=== PATIENT | female | born 1980 | race African-American/Black ===

== ENCOUNTER 2023-10-09 16:00 | Emergency (ER) | payer MEDICAID ==
[~2023-10-09] VITALS: Ht 170.2 cm; Wt 136.4 kg
[2023-10-09 16:56] LABS: COVID AG,FIA SOURCE NASAL SWAB
[2023-10-09 17:03] LABS: SARS-COV2 (COVID) ANTIGEN,FIA Negative (Negative)
[2023-10-09 17:04] LABS: INFLUENZA TYPE A NEGATIVE FOR TYPE A (NEGATIVE); INFLUENZA TYPE B NEGATIVE FOR TYPE B (NEGATIVE)
[2023-10-09 17:51] VITALS: BP 111/75; PULSE 88; RESP 16; TEMP 98.2
[2023-10-09] MEDS ORDERED: GUAIFDM PO (17:52)
[2023-10-09] MEDS ORDERED: IBUP-1554 PO (17:52)
[2023-10-09] MEDS ORDERED: ACET-66 PO (17:52)
== END 2023-10-09 19:00 | disposition home or self-care (01) ==
LOC: EMS 16:02
DX: J06.9 Acute upper respiratory infection, unspecified (principal); Z90.49 Acquired absence of other specified parts of digestive tract; Z20.822 Contact with and (suspected) exposure to COVID-19
CPT/HCPCS: 87804; 99283

== ENCOUNTER 2023-10-25 14:16 | Emergency (ER) | payer MEDICAID ==
[~2023-10-25] VITALS: Ht 170.2 cm; Wt 102.3 kg
[~2023-10-25 14:16] MED LIST: ACET-66 PO; GUAIFDM PO; IBUP-1554 PO
[2023-10-25 14:35] VITALS: TEMP 98.9
[2023-10-25 14:52] LABS: COVID AG,FIA SOURCE NASAL SWAB
[2023-10-25 15:01] LABS: INFLUENZA TYPE A NEGATIVE FOR TYPE A (NEGATIVE); INFLUENZA TYPE B NEGATIVE FOR TYPE B (NEGATIVE); SARS-COV2 (COVID) ANTIGEN,FIA Negative (Negative)
[2023-10-25 15:02] LABS: RAPID GROUP A STREP NEGATIVE (NEGATIVE)
[2023-10-25] MEDS ORDERED: AZIT250T9 PO (16:08)
[2023-10-25 16:29] VITALS: BP 140/79; PULSE 109; RESP 16
== END 2023-10-25 16:46 | disposition home or self-care (01) ==
LOC: EMS 14:33
DX: H66.91 Otitis media, unspecified, right ear (principal); J02.9 Acute pharyngitis, unspecified; Z90.49 Acquired absence of other specified parts of digestive tract; Z88.0 Allergy status to penicillin; Z20.822 Contact with and (suspected) exposure to COVID-19
CPT/HCPCS: 87430; 87804; 99283

== ENCOUNTER 2023-12-28 12:08 | Emergency (ER) | payer MEDICAID ==
[~2023-12-28] VITALS: Ht 170.2 cm; Wt 102.3 kg
[2023-12-28 14:03] LABS: ANION GAP 13 mmol/L (8-16); CARBON DIOXIDE 24 mmol/L (22-29); CHLORIDE 101 mmol/L (98-107); GLOMERULAR FILTR. RATE CALC > 60 mL/min (>60); GLUCOSE,RANDOM 94 mg/dL (70-110); POTASSIUM 3.2 mmol/L (3.5-5.1); SODIUM SERUM 138 mmol/L (136-145); UREA NITROGEN, BLOOD 9 mg/dL (7-18)
[2023-12-28 14:04] LABS: BASOPHILS % (AUTO) 0.9 % (0.0-2.0); EOSINOPHILS % (AUTO) 0.1 % (1.0-6.0); HEMATOCRIT 40.2 % (36-46); MEAN CORPUSCULAR HEMOGLOBIN 27.2 pg (26.0-34.0); MEAN CORPUSCULAR HGB CONC 32.3 G/dL (31.0-37.0); MEAN CORPUSCULAR VOLUME 84 fL (80-100); MONOCYTES # (AUTO) 0.5 K/uL (0.1-1.0); MONOCYTES % (AUTO) 8.7 % (2.0-9.0); NEUTROPHILS % (AUTO) 72.3 % (40.0-70.0); PLATELET COUNT (AUTO) 254 K/uL (150-450); RED BLOOD CELL COUNT(AUTO) 4.78 MIL/uL (4.00-5.20); RED CELL DISTRIBUTION WIDTH 14.6 % (11.5-14.5); WHITE BLOOD COUNT (AUTO) 5.5 K/uL (4.5-11.0)
[2023-12-28 14:10] LABS: ALANINE AMINOTRANSFERASE 13 U/L (12-78); ALBUMIN 3.9 g/dL (3.4-5.0); ALKALINE PHOSPHATASE 53 U/L (46-116); ASPARTATE AMINOTRANSFERASE 16 U/L (15-37); BILIRUBIN,TOTAL 0.9 mg/dL (0.1-1.0); LIPASE 47 U/L (16-77); TOTAL PROTEIN, SERUM 7.7 g/dL (6.4-8.2)
[2023-12-28 14:11] LABS: TROPONIN I-HIGH SENSITIVITY 11 ng/L (<51)
[2023-12-28 14:12] LABS: LACTIC ACID 1.2 mmol/L (0.4-2.0)
[2023-12-28 14:49] LABS: APPEARANCE,URINE CLEAR (CLEAR); BILIRUBIN,URINE NEGATIVE (NEGATIVE); COLOR,URINE YELLOW (YELLOW); GLUCOSE, URINE (UA) TRACE mg/dL (NEGATIVE); KETONES,URINE 40-60 mg/dL (NEGATIVE); LEUKOCYTE ESTERASE ,URINE NEGATIVE (NEGATIVE); NITRATE,URINE NEGATIVE (NEGATIVE); OCCULT BLOOD,URINE SMALL (NEGATIVE); PH,URINE 5.5 (5.0-8.0); PROTEIN,URINE 30-70 mg/dL (NEGATIVE); SPECIFIC GRAVITIY, URINE 1.028 (1.003-1.030); UROBILINOGEN,URINE <=1.0 mg/dL (<=1.0)
[2023-12-28] MEDS: POTASSIUM CHLORIDE 20 MEQ ER TABLET PO ONE (14:57)
[2023-12-28 15:13] LABS: BACTERIA,URINE Few /HPF (None Seen); WBC,URINE 0-2 /HPF (0-5)
[2023-12-28 15:14] LABS: SQUAMOUS EPITHELIAL CELL,UR Moderate /LPF (None Seen)
[2023-12-28 18:33] VITALS: TEMP 98.6
[2023-12-28 18:35] VITALS: BP 139/88; PULSE 91; RESP 18
== END 2023-12-28 18:53 | disposition home or self-care (01) ==
LOC: EMS 13:12
DX: R10.9 Unspecified abdominal pain (principal); Z90.49 Acquired absence of other specified parts of digestive tract
CPT/HCPCS: 76700; 80053; 81001; 83605; 83690; 84484; 84703; 85025; 93005; 99284

== ENCOUNTER 2025-04-11 16:40 | Emergency (ER) | payer MEDICAID, OTHER ==
[~2025-04-11] VITALS: Ht 167.6 cm; Wt 88.6 kg
[2025-04-11] MEDS ORDERED: METO25XL PO (16:48)
[2025-04-11 16:52] VITALS: TEMP 99
[2025-04-11 18:00] LABS: PLATELET COUNT (AUTO) 256 K/uL (150-450); RED BLOOD CELL COUNT(AUTO) 4.98 MIL/uL (4.00-5.20); RED CELL DISTRIBUTION WIDTH 14.8 % (11.5-14.5); WHITE BLOOD COUNT (AUTO) 6.5 K/uL (4.5-11.0)
[2025-04-11 18:10] LABS: CALCIUM, TOTAL 9.0 mg/dL (8.8-10.5); CREATININE 1.29 mg/dL (0.60-1.30); GLOMERULAR FILTR. RATE CALC 55 mL/min (>60); GLUCOSE,RANDOM 91 mg/dL (70-110); SODIUM SERUM 137 mmol/L (136-145); UREA NITROGEN, BLOOD 7 mg/dL (7-18)
[2025-04-11 18:12] LABS: ALCOHOL, BLOOD (SERUM) < 3 mg/dL (0-10)
[2025-04-11 18:14] LABS: TROPONIN I-HIGH SENSITIVITY 7 ng/L (<51)
[2025-04-11 18:19] LABS: LACTIC ACID 1.9 mmol/L (0.4-2.0)
[2025-04-11 19:01] LABS: APPEARANCE,URINE HAZY (CLEAR); GLUCOSE, URINE (UA) NEGATIVE (NEGATIVE); LEUKOCYTE ESTERASE ,URINE NEGATIVE (NEGATIVE); NITRATE,URINE NEGATIVE (NEGATIVE); OCCULT BLOOD,URINE SMALL (NEGATIVE); PH,URINE DRUG SCREEN 5.5 (5.0-8.0); SPECIFIC GRAVITIY, URINE 1.031 (1.003-1.030)
[2025-04-11 19:05] LABS: ALCOHOL, URINE DRUG SCREEN NEGATIVE (NEGATIVE); AMPHET/METH SCREEN,URINE NEGATIVE (NEGATIVE); BARBITURATE SCREEN, URINE NEGATIVE (NEGATIVE); CANNABINOID SCREEN,URINE NEGATIVE (NEGATIVE); COCAINE SCREEN,URINE NEGATIVE (NEGATIVE); METHADONE SCREEN, URINE NEGATIVE (NEGATIVE)
[2025-04-11 19:12] LABS: SQUAMOUS EPITHELIAL CELL,UR Few /LPF (None Seen)
[2025-04-11 19:24] VITALS: BP 120/62; PULSE 116; RESP 20; O2SAT 100
== END 2025-04-11 20:05 | disposition home or self-care (01) ==
LOC: EMS 16:48
DX: F32.A Depression, unspecified (principal); R53.1 Weakness; R51.9 Headache, unspecified; Z90.49 Acquired absence of other specified parts of digestive tract; Z79.899 Other long term (current) drug therapy
CPT/HCPCS: 99285; 70450; 71045; 80048; 83605; 83690; 84484; 84703; 85025; 85379; 36415; 93005; 80307; 81001; G0480